=== PATIENT | female | born 1955 | race Caucasian/White ===

== ENCOUNTER → 2017-03-29 | Outpatient (CLI) | payer OTHER ==
[2017-03-29 10:49] LABS: ALBUMIN 3.7 GM/DL (3.2-5.2); ALBUMIN/GLOBULIN RATIO 1.03 (1.00-1.93); ALKALINE PHOSPHATASE 70 U/L (45-117); ALT/SGPT 45 U/L (12-78); ANION GAP 8 MEQ/L (8-16); AST/SGOT 39 U/L (15-37); BILIRUBIN,TOTAL 0.6 MG/DL (0.2-1.0); BLOOD UREA NITROGEN 14 MG/DL (7-18); CALCIUM LEVEL 8.8 MG/DL (8.8-10.2); CARBON DIOXIDE LEVEL 28 MEQ/L (21-32); CHLORIDE LEVEL 106 MEQ/L (98-107); CHOLESTEROL LEVEL 261 MG/DL (<200); CREATININE FOR GFR 0.79 MG/DL (0.55-1.02); FREE T4 1.25 NG/DL (0.76-1.46); GLOMERULAR FILTRATION RATE > 60.0 (>45); GLUCOSE, FASTING 91 MG/DL (80-110); POTASSIUM SERUM 3.9 MEQ/L (3.5-5.1); SODIUM LEVEL 142 MEQ/L (136-145); TOTAL PROTEIN 7.3 GM/DL (6.4-8.2); TRIGLYCERIDES LEVEL 123 MG/DL (<150)
== END ==
LOC: M LAB 08:12
PROVIDERS: ATTEND Nurse Practitioner Family
DX: E78.5 Hyperlipidemia, unspecified (principal); E55.9 Vitamin D deficiency, unspecified

== ENCOUNTER → 2017-04-04 | Outpatient (REF) | payer OTHER | LOC: M SFHCPLAZ 17:08 | PROVIDERS: ATTEND Nurse Practitioner Family | DX: E78.5 Hyperlipidemia, unspecified (principal) ==

== ENCOUNTER → 2017-05-29 | Outpatient (CLI) | payer OTHER ==
--- NOTE | 2017-05-29 13:01 | REPMRS ---
Patient History The patient states she had a clinical breast exam in 06/14 Patient is postmenopausal. No known family history of cancer. Benign excisional biopsy of the left breast, 1979. Digital Woman Screen Mammo: May 29, 2017 - Exam #: [id number] Bilateral CC and MLO view(s) were taken. Technologist: Lennie Gomez, Technologist Prior study comparison: June 12, 2016, digital woman screen mammo performed at [facility]. May 12, 2015, digital woman screen mammo performed at [facility]. FINDINGS: The breast tissue is almost entirely fat. There has been no change in the appearance of the mammogram from the prior studies. There is no interval development of dominant mass, areas of architectural distortion, or clustered microcalcification typical of malignancy. Scattered lymph nodes are seen in the axillae. No significant changes when compared with prior studies. ASSESSMENT: BI-RADS/ACR category 2 mammogram. Benign finding(s). Recommendation Routine screening mammogram in 1 year (for women over age 40). This mammogram was interpreted with the aid of an FDA-approved computer-aided dectection system. A. Negative x-ray reports should not delay biopsy if a dominant or clinically suspicious mass is present. B. Four to eight percent of cancers are not identified by mammography. C. Adenosis and dense breast may obscure an underlying neoplasm. Electronically Signed By: Ajay Rod MD 05/29/17 [id number]
== END ==
LOC: M WHC 10:04
PROVIDERS: ATTEND Nurse Practitioner Family
DX: Z12.31 Encounter for screening mammogram for malignant neoplasm of breast (principal); Z78.0 Asymptomatic menopausal state; R92.2 Inconclusive mammogram

== ENCOUNTER → 2017-06-28 | Outpatient (REF) | payer OTHER ==
[2017-06-28 14:15] LABS: ALBUMIN 3.6 GM/DL (3.2-5.2); ALBUMIN/GLOBULIN RATIO 1.06 (1.00-1.93); ALKALINE PHOSPHATASE 90 U/L (45-117); ALT/SGPT 31 U/L (12-78); ANION GAP 8 MEQ/L (8-16); AST/SGOT 26 U/L (15-37); BILIRUBIN,TOTAL 0.5 MG/DL (0.2-1.0); BLOOD UREA NITROGEN 15 MG/DL (7-18); CALCIUM LEVEL 9.2 MG/DL (8.8-10.2); CARBON DIOXIDE LEVEL 28 MEQ/L (21-32); CHLORIDE LEVEL 109 MEQ/L (98-107); CHOLESTEROL LEVEL 141 MG/DL (<200); CREATININE FOR GFR 0.81 MG/DL (0.55-1.02); FREE T4 1.27 NG/DL (0.76-1.46); GLOMERULAR FILTRATION RATE > 60.0 (>45); GLUCOSE, FASTING 88 MG/DL (80-110); POTASSIUM SERUM 4.2 MEQ/L (3.5-5.1); SODIUM LEVEL 145 MEQ/L (136-145); TRIGLYCERIDES LEVEL 140 MG/DL (<150)
== END ==
LOC: M SFHCPLAZ 08:25
PROVIDERS: ATTEND Nurse Practitioner Family
DX: E78.5 Hyperlipidemia, unspecified (principal); E55.9 Vitamin D deficiency, unspecified

== ENCOUNTER → 2018-01-02 | Outpatient (REF) | payer OTHER ==
[2018-01-02 13:58] LABS: ALBUMIN 3.7 GM/DL (3.2-5.2); ALBUMIN/GLOBULIN RATIO 1.06 (1.00-1.93); ALKALINE PHOSPHATASE 90 U/L (45-117); ALT/SGPT 29 U/L (12-78); ANION GAP 6 MEQ/L (8-16); AST/SGOT 27 U/L (7-37); BILIRUBIN,TOTAL 0.6 MG/DL (0.2-1.0); BLOOD UREA NITROGEN 16 MG/DL (7-18); CALCIUM LEVEL 9.1 MG/DL (8.8-10.2); CARBON DIOXIDE LEVEL 30 MEQ/L (21-32); CHLORIDE LEVEL 107 MEQ/L (98-107); CREATININE FOR GFR 0.71 MG/DL (0.55-1.30); GLOMERULAR FILTRATION RATE > 60.0 (>45); GLUCOSE, FASTING 87 MG/DL (70-100); POTASSIUM SERUM 4.4 MEQ/L (3.5-5.1); SODIUM LEVEL 143 MEQ/L (136-145); TOTAL PROTEIN 7.2 GM/DL (6.4-8.2)
== END ==
LOC: M SFHCPLAZ 08:22
DX: E78.5 Hyperlipidemia, unspecified (principal)
CPT/HCPCS: 36415

== ENCOUNTER → 2018-06-26 | Outpatient (REF) | payer MEDICARE, MEDICAID | LOC: M SFHCWAGY 11:10 | DX: Z12.4 Encounter for screening for malignant neoplasm of cervix (principal); N95.2 Postmenopausal atrophic vaginitis ==

== ENCOUNTER → 2018-06-26 | Outpatient (CLI) | payer MEDICARE, MEDICAID | LOC: M WHC 09:01 | DX: Z12.31 Encounter for screening mammogram for malignant neoplasm of breast (principal); Z12.4 Encounter for screening for malignant neoplasm of cervix; N95.2 Postmenopausal atrophic vaginitis; Z78.0 Asymptomatic menopausal state; Z98.890 Other specified postprocedural states; M81.0 Age-related osteoporosis without current pathological fracture; Z12.12 Encounter for screening for malignant neoplasm of rectum | CPT/HCPCS: G0123 ==

== ENCOUNTER → 2018-07-08 | Outpatient (REF) | payer MEDICARE, MEDICAID ==
[2018-07-08 10:54] LABS: TOTAL 25(OH) VITAMIN D 45.2 NG/ML (30.0-100.0)
[2018-07-08 14:59] LABS: ALKALINE PHOSPHATASE 90 U/L (45-117); ALT/SGPT 30 U/L (12-78); ANION GAP 8 MEQ/L (8-16); AST/SGOT 24 U/L (7-37); BILIRUBIN,TOTAL 0.4 MG/DL (0.2-1.0); BLOOD UREA NITROGEN 21 MG/DL (7-18); CALCIUM LEVEL 8.9 MG/DL (8.8-10.2); CARBON DIOXIDE LEVEL 26 MEQ/L (21-32); CHLORIDE LEVEL 109 MEQ/L (98-107); CREATININE FOR GFR 0.88 MG/DL (0.55-1.30); FREE T4 1.23 NG/DL (0.76-1.46); GLOMERULAR FILTRATION RATE > 60.0 (>45); GLUCOSE, FASTING 89 MG/DL (70-100); POTASSIUM SERUM 4.6 MEQ/L (3.5-5.1); SODIUM LEVEL 143 MEQ/L (136-145); TOTAL PROTEIN 7.4 GM/DL (6.4-8.2); TRIGLYCERIDES LEVEL 179 MG/DL (<150)
[2018-07-08 16:50] LABS: CHOLESTEROL LEVEL 143 MG/DL (<200); CHOLESTEROL RISK RATIO 2.648 (<5); HDL CHOLESTEROL 54 MG/DL (>40); LDL CHOLESTEROL 53.2 MG/DL (<100); NON-HDL-C 89 MG/DL
[2018-07-08 16:52] LABS: ALBUMIN/GLOBULIN RATIO 1.17 (1.00-1.93)
== END ==
LOC: M SFHCPLAZ 08:22
DX: E78.5 Hyperlipidemia, unspecified (principal); E55.9 Vitamin D deficiency, unspecified
CPT/HCPCS: 84443

== ENCOUNTER → 2019-01-01 | Outpatient (REF) | payer MEDICARE, MEDICAID ==
[2019-01-01 12:29] LABS: BLOOD UREA NITROGEN 20 MG/DL (7-18); CALCIUM LEVEL 9.6 MG/DL (8.8-10.2); CARBON DIOXIDE LEVEL 30 MEQ/L (21-32); CHLORIDE LEVEL 104 MEQ/L (98-107); GLOMERULAR FILTRATION RATE > 60.0 (>45); GLUCOSE, FASTING 91 MG/DL (70-100); SODIUM LEVEL 142 MEQ/L (136-145)
== END ==
LOC: M SFHCPLAZ 09:23
PROVIDERS: ATTEND Nurse Practitioner Family
DX: I10 Essential (primary) hypertension (principal)

== ENCOUNTER → 2019-07-14 | Outpatient (REF) | payer MEDICARE, MEDICAID ==
[~2019-07-14] MED LIST: ALEN70TA74 PO; ASPI81TA85 PO; ATOR40TA75 PO; CALC1TAB63 PO; D 202000 PO; EXCETAB44 PO; FLUTISP; HYDR-4571 PO; HYDR12.55 PO; LORA-622 PO; NORC1TAB7 PO; OMEP-221 PO; ONDA4TAB6 PO; PROM12.56 PO; SUMA100T2 PO
[2019-07-14 10:54] LABS: HEMATOCRIT 40.5 % (36.0-47.0); HEMOGLOBIN 12.9 g/dl (12.0-15.5); MEAN CORPUSCULAR HEMOGLOBIN 29.6 pg (27.0-33.0); MEAN CORPUSCULAR HGB CONC 31.9 g/dl (32.0-36.5); MEAN CORPUSCULAR VOLUME 92.9 fl (80.0-96.0); PLATELET COUNT, AUTOMATED 240 10^3/uL (150-450); RED BLOOD COUNT 4.36 10^6/uL (4.00-5.40); WHITE BLOOD COUNT 4.7 10^3/uL (4.0-10.0)
[2019-07-14 11:17] LABS: ALBUMIN 3.4 GM/DL (3.2-5.2); ALT/SGPT 25 U/L (12-78); BILIRUBIN,TOTAL 0.5 MG/DL (0.2-1.0); BLOOD UREA NITROGEN 17 MG/DL (7-18); CALCIUM LEVEL 8.9 MG/DL (8.8-10.2); CARBON DIOXIDE LEVEL 32 MEQ/L (21-32); CHLORIDE LEVEL 106 MEQ/L (98-107); CHOLESTEROL LEVEL 138 MG/DL (<200); CHOLESTEROL RISK RATIO 2.816 (<5); CREATININE FOR GFR 0.91 MG/DL (0.55-1.30); GLOMERULAR FILTRATION RATE > 60.0 (>45); GLUCOSE, FASTING 90 MG/DL (70-100); HDL CHOLESTEROL 49 MG/DL (>40); LDL CHOLESTEROL 68 MG/DL (<100); NON-HDL-C 89 MG/DL; POTASSIUM SERUM 3.8 MEQ/L (3.5-5.1); SODIUM LEVEL 143 MEQ/L (136-145); TOTAL PROTEIN 6.8 GM/DL (6.4-8.2); TRIGLYCERIDES LEVEL 105 MG/DL (<150)
[2019-07-14 11:22] LABS: TOTAL 25(OH) VITAMIN D 37.7 NG/ML (30.0-100.0)
[2019-07-14 11:27] LABS: MALB URINE SIEMENS < 5.0 MG/L; MAU/CREAT RATIO 4.9 MCG/MG (0.0-30.0)
== END ==
LOC: M SFHCPLAZ 08:29
PROVIDERS: ATTEND Nurse Practitioner Family
DX: K21.9 Gastro-esophageal reflux disease without esophagitis (principal); I10 Essential (primary) hypertension; E78.5 Hyperlipidemia, unspecified; E55.9 Vitamin D deficiency, unspecified

== ENCOUNTER → 2019-08-27 | Outpatient (CLI) | payer MEDICARE, MEDICAID ==
--- NOTE | 2019-08-27 10:33 | REPMRS ---
Patient History The patient states she had a clinical breast exam in 07/2019. No known family history of cancer. Benign excisional biopsy of the left breast, 1979. No Hormone Replacement Therapy 3D TOMOSYNTHESIS WAS PERFORMED. [facility] lifetime risk for breast cancer is 4.9%. Digital Woman Screen Mammo: August 27, 2019 - Exam #: [id number] Bilateral CC and MLO view(s) were taken. Technologist: Lennie Gomez, Technologist Prior study comparison: June 26, 2018, bilateral digital woman screen mammo performed at [facility]. May 29, 2017, digital woman screen mammo performed at [facility]. FINDINGS: There are scattered fibroglandular densities. There has been no change in the appearance of the mammogram from the prior studies. There is a mild amount of residual fibroglandular tissue which is fairly symmetric. There is no interval development of dominant mass, architectural distortion, or clustered microcalcification suggestive of malignancy. Assessment: BI-RADS/ACR category 1 mammogram. Negative Mammogram. Recommendation Routine screening mammogram in 1 year (for women over age 40). This mammogram was interpreted with the aid of an FDA-approved computer-aided dectection system. Electronically Signed By: Julio Rose MD 08/27/19 [id number]
== END ==
LOC: M WHC 09:41
PROVIDERS: ATTEND Nurse Practitioner Family
DX: Z12.31 Encounter for screening mammogram for malignant neoplasm of breast (principal); Z86.018 Personal history of other benign neoplasm
CPT/HCPCS: 77063; 77067; G0463

== ENCOUNTER 2019-09-23 09:15 | Emergency (ER) | payer MEDICARE, MEDICAID ==
[~2019-09-23] VITALS: Ht 152.4 cm; Wt 77.2 kg
[2019-09-23] MEDS ORDERED: ALEN70TA74 (09:23)
[2019-09-23] MEDS ORDERED: HYDR12.55 (09:23)
[2019-09-23] MEDS ORDERED: FLUTISP (09:23)
[2019-09-23] MEDS ORDERED: ATOR40TA75 (09:23)
[2019-09-23] MEDS ORDERED: OMEP-221 (09:23)
[2019-09-23] MEDS ORDERED: ONDANSETRON 4MG/2ML VIAL (J2405) IV ONE (10:15)
[2019-09-23] MEDS ORDERED: NS 1,000 ML IV ONE ×2 (10:15→13:00)
[2019-09-23 11:09] LABS: BASO % 0.4 % (0.0-1.0); EOS % 0.2 % (0.0-3.0); HEMATOCRIT 41.5 % (36.0-47.0); HEMOGLOBIN 13.7 g/dl (12.0-15.5); LYMPH # 1.3 10^3/uL (1.5-5.0); LYMPH % 13.2 % (24.0-44.0); MEAN CORPUSCULAR HEMOGLOBIN 30.6 pg (27.0-33.0); MEAN CORPUSCULAR VOLUME 92.6 fl (80.0-96.0); MONO # 0.9 10^3/uL (0.0-0.8); MONO % 8.8 % (0.0-5.0); NEUTROPHILS # 7.6 10^3/uL (1.5-8.5); NEUTROPHILS % 77.1 % (36.0-66.0); PLATELET COUNT, AUTOMATED 255 10^3/uL (150-450); RED BLOOD COUNT 4.48 10^6/uL (4.00-5.40); WHITE BLOOD COUNT 9.9 10^3/uL (4.0-10.0)
[2019-09-23 11:32] LABS: INFLUENZA A AMPLIFICATION NEGATIVE (NEGATIVE); INFLUENZA B AMPLIFICATION NEGATIVE (NEGATIVE)
[2019-09-23 12:28] LABS: ALBUMIN 3.6 GM/DL (3.2-5.2); ALT/SGPT 22 U/L (12-78); AMYLASE 212 U/L (25-115); BILIRUBIN,DIRECT 0.2 MG/DL (0.0-0.2); BILIRUBIN,TOTAL 1.1 MG/DL (0.2-1.0); BLOOD UREA NITROGEN 17 MG/DL (7-18); CALCIUM LEVEL 9.1 MG/DL (8.8-10.2); CARBON DIOXIDE LEVEL 26 MEQ/L (21-32); CHLORIDE LEVEL 106 MEQ/L (98-107); CREATININE FOR GFR 0.78 MG/DL (0.55-1.30); GLOMERULAR FILTRATION RATE > 60.0 (>45); GLUCOSE, FASTING 78 MG/DL (70-100); LIPASE 1167 U/L (73-393); SODIUM LEVEL 140 MEQ/L (136-145); TOTAL PROTEIN 7.6 GM/DL (6.4-8.2)
[2019-09-23] MEDS ORDERED: ISOVUE-370 76% 100ML VIAL (Q9967) As Ordered ONE (12:59)
--- NOTE | 2019-09-23 14:09 | REP ---
CT ABDOMEN AND PELVIS WITH IV BUT WITHOUT ORAL CONTRAST: HISTORY: Pancreatitis. No comparison CT or sonography. CT CONTRAST DOSE: 100 mL of intravenous Isovue 370. CT FINDINGS: Digital preliminary seating upholsterer radiograph demonstrates mild gaseous distension of the transverse colon question ileus. The lung bases are clear. There is no evidence of pleural effusion or upper abdominal ascites. There is mild diffuse fatty infiltration of the liver. There are scattered granulomatous calcifications and small cysts in the spleen. There are granulomatous calcifications in the lung bases as well. There are multiple gallstones in the dependent portion of the gallbladder measuring up to 1.5 cm in greatest diameter. There is minimal gallbladder wall thickening enhancement but no pericholecystic fluid is seen. The gallbladder is mildly distended measuring 9.2 cm in greatest diameter. No adrenal lesion is seen. There is thickening of the pancreatic tail with a pancreatic and peripancreatic edema adjacent to the tail of the pancreas consistent with pancreatitis. The thickened pancreatic tail shows some increase in overall attenuation as well but no mass lesion is seen. The body and head of the pancreas are unremarkable. No organized fluid collection is seen. There is a tiny accessory splenule. There is mild hydronephrosis affecting the left kidney and a parapelvic cyst is seen in the upper pole of the left kidney. No ureteral calculus or mass lesion is observed. The kidneys enhance symmetrically. Normal caliber aorta is seen. A normal appendix is observed. There is sigmoid colon diverticulosis and some descending colon diverticulosis without CT evidence of diverticulitis. No uterine or ovarian abnormality is seen. Urinary bladder is unremarkable. No abdominal wall defect is seen. IMPRESSION: Regional swelling and increased attenuation in the pancreatic tail with peripancreatic fat streaking adjacent to the pancreatic tail consistent with focal pancreatitis. No definite mass lesion. Consider follow-up scan. No fluid collection, hemorrhage, or necrosis is evident. Cholelithiasis and mild distension of the gallbladder is visible. There is some fatty infiltration of the liver. Mild left-sided hydronephrosis and hydroureter without evidence of stone or mass. Left colonic diverticulosis. Electronically Signed by Nahum Kraus MD 09/23/2019 02:22 P
--- NOTE | 2019-09-23 14:42 | REP ---
RIGHT UPPER QUADRANT ULTRASOUND: Real-time sonographic evaluation of right upper quadrant performed. Gallbladder demonstrates sludge and stones. Gallbladder wall is not significantly thickened. There is no intrahepatic or extrahepatic biliary dilatation, common bile duct measuring 4 mm. Liver demonstrates diffuse heterogeneous increased echotexture, compatible with diffuse fibrofatty infiltration. Pancreas is not seen due to overlying bowel gas. Right kidney demonstrates no hydronephrosis with normal size 10.6 cm in length. The study is limited due to body habitus and bowel gas. IMPRESSION: Sludge and stones in the gallbladder. No biliary dilatation or free fluid. No gallbladder wall thickening. Diffuse fibrofatty infiltration of the liver. Electronically Signed by Julio Rose MD 09/23/2019 03:00 P
[2019-09-23] MEDS ORDERED: KETOROLAC 30 MG/ML VIAL (J1885) IV ONE (14:45)
[2019-09-23] MEDS ORDERED: METOCLOPRAMIDE INJ 10MG/2ML VIAL (J2765) IV ONE (14:45)
[2019-09-23] MEDS ORDERED: NORC1TAB7 PO (15:49)
[2019-09-23] MEDS ORDERED: ONDA4TAB6 PO (15:49)
[2019-09-23 16:06] VITALS: BP 121/65
--- NOTE | 2019-09-29 13:03 | ED PDOC ---
Post-Departure Follow-Up sandra jovel and lianet faxed formal report of ct abd/p for fu Nathaniel Alvarenga MD Sep 29, 2019 13:02
== END 2019-09-23 16:08 | disposition home or self-care (01) ==
LOC: M ED 09:15
DX: K80.51 Calculus of bile duct without cholangitis or cholecystitis with obstruction (principal); K85.92 Acute pancreatitis with infected necrosis, unspecified; I10 Essential (primary) hypertension; E78.5 Hyperlipidemia, unspecified; K21.9 Gastro-esophageal reflux disease without esophagitis; K76.0 Fatty (change of) liver, not elsewhere classified; K57.30 Diverticulosis of large intestine without perforation or abscess without bleeding; Z79.899 Other long term (current) drug therapy
CPT/HCPCS: 74177; 76705; 80048; 80076; 82150; 83690; 85025; 87502; 96361; 96374; 96375; 99284; J1885; J2405; J2765; Q9967

== ENCOUNTER 2019-09-24 08:51 | Emergency (ER) | payer MEDICARE, MEDICAID ==
[~2019-09-24] VITALS: Ht 152.4 cm; Wt 77.6 kg
[~2019-09-24 08:51] MED LIST changes: +ALEN70TA74; -ALEN70TA74 PO; -ASPI81TA85 PO; +ATOR40TA75; -ATOR40TA75 PO; -CALC1TAB63 PO; -D 202000 PO; -EXCETAB44 PO; -HYDR-4571 PO; +HYDR12.55; -HYDR12.55 PO; -LORA-622 PO; +OMEP-221; -OMEP-221 PO; -PROM12.56 PO; -SUMA100T2 PO
[2019-09-24] MEDS ORDERED: METOCLOPRAMIDE INJ 10MG/2ML VIAL (J2765) IV ONE (09:15)
[2019-09-24] MEDS ORDERED: NS 1,000 ML IV ONE (09:15)
[2019-09-24 09:53] LABS: BASO % 0.3 % (0.0-1.0); EOS % 0.5 % (0.0-3.0); HEMATOCRIT 38.8 % (36.0-47.0); HEMOGLOBIN 12.1 g/dl (12.0-15.5); LYMPH # 1.1 10^3/uL (1.5-5.0); LYMPH % 12.8 % (24.0-44.0); MEAN CORPUSCULAR HEMOGLOBIN 30.1 pg (27.0-33.0); MEAN CORPUSCULAR HGB CONC 31.2 g/dl (32.0-36.5); MEAN CORPUSCULAR VOLUME 96.5 fl (80.0-96.0); MONO # 0.8 10^3/uL (0.0-0.8); MONO % 9.1 % (0.0-5.0); NEUTROPHILS # 6.7 10^3/uL (1.5-8.5); NEUTROPHILS % 76.7 % (36.0-66.0); PLATELET COUNT, AUTOMATED 187 10^3/uL (150-450); RED BLOOD COUNT 4.02 10^6/uL (4.00-5.40); WHITE BLOOD COUNT 8.8 10^3/uL (4.0-10.0)
[2019-09-24 10:19] LABS: ALBUMIN 3.1 GM/DL (3.2-5.2); ALT/SGPT 18 U/L (12-78); AMYLASE 103 U/L (25-115); BILIRUBIN,DIRECT 0.3 MG/DL (0.0-0.2); BILIRUBIN,TOTAL 0.9 MG/DL (0.2-1.0); BLOOD UREA NITROGEN 15 MG/DL (7-18); CALCIUM LEVEL 8.4 MG/DL (8.8-10.2); CARBON DIOXIDE LEVEL 28 MEQ/L (21-32); CHLORIDE LEVEL 108 MEQ/L (98-107); CREATININE FOR GFR 0.77 MG/DL (0.55-1.30); GLOMERULAR FILTRATION RATE > 60.0 (>45); GLUCOSE, FASTING 100 MG/DL (70-100); LIPASE 403 U/L (73-393); POTASSIUM SERUM 3.6 MEQ/L (3.5-5.1); SODIUM LEVEL 141 MEQ/L (136-145); TOTAL PROTEIN 6.6 GM/DL (6.4-8.2)
[2019-09-24] MEDS ORDERED: KETOROLAC 30 MG/ML VIAL (J1885) IV ONE (10:45)
[2019-09-24] MEDS ORDERED: ONDANSETRON 4MG/2ML VIAL (J2405) IV ONE (10:45)
[2019-09-24 11:59] VITALS: BP 121/60
== END 2019-09-24 12:04 | disposition home or self-care (01) ==
LOC: M ED 08:51
DX: G43.909 Migraine, unspecified, not intractable, without status migrainosus (principal); K85.90 Acute pancreatitis without necrosis or infection, unspecified; I10 Essential (primary) hypertension; E78.5 Hyperlipidemia, unspecified; Z79.899 Other long term (current) drug therapy
CPT/HCPCS: 80048; 80076; 82150; 83690; 85025; 96361; 96374; 96375; 99283; J1885; J2405; J2765

== ENCOUNTER → 2019-10-17 | Outpatient (CLI) | payer MEDICARE, MEDICAID ==
[~2019-10-17] MED LIST changes: -ALEN70TA74; +ALEN70TA74 PO; +ASPI81TA85 PO; -ATOR40TA75; +ATOR40TA75 PO; +CALC1TAB63 PO; +D 202000 PO; +EXCETAB44 PO; +HYDR-4571 PO; -HYDR12.55; +HYDR12.55 PO; +LORA-622 PO; -OMEP-221; +OMEP-221 PO; +PROM12.56 PO; +SUMA100T2 PO
--- NOTE | 2019-10-17 17:58 | ECGEPIP ---
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 Clincal correlation advised Electronically Signed on 10-17-2019 17:58:41 EST by Bubba Gaston
== END ==
LOC: M EKG 13:45
PROVIDERS: ATTEND Anesthesiology
DX: Z01.810 Encounter for preprocedural cardiovascular examination (principal); R00.1 Bradycardia, unspecified

== ENCOUNTER 2019-10-21 10:17 | Emergency (ER) | payer MEDICARE, MEDICAID ==
[~2019-10-21] VITALS: Ht 152.4 cm; Wt 73.6 kg
[~2019-10-21 10:17] MED LIST changes: -HYDR-4571 PO; -PROM12.56 PO
[2019-10-21] MEDS ORDERED: NS 1,000 ML IV ONE (10:45)
[2019-10-21] MEDS ORDERED: ONDANSETRON 4MG/2ML VIAL (J2405) IV ONE (10:45)
[2019-10-21 11:09] LABS: BASO % 0.6 % (0.0-1.0); EOS % 0.2 % (0.0-3.0); HEMATOCRIT 41.7 % (36.0-47.0); HEMOGLOBIN 13.2 g/dl (12.0-15.5); LYMPH # 0.9 10^3/uL (1.5-5.0); LYMPH % 18.8 % (24.0-44.0); MEAN CORPUSCULAR HEMOGLOBIN 30.1 pg (27.0-33.0); MEAN CORPUSCULAR HGB CONC 31.7 g/dl (32.0-36.5); MONO # 0.2 10^3/uL (0.0-0.8); MONO % 4.3 % (0.0-5.0); NEUTROPHILS # 3.7 10^3/uL (1.5-8.5); NEUTROPHILS % 75.5 % (36.0-66.0); PLATELET COUNT, AUTOMATED 209 10^3/uL (150-450); RED BLOOD COUNT 4.39 10^6/uL (4.00-5.40); WHITE BLOOD COUNT 4.9 10^3/uL (4.0-10.0)
[2019-10-21 11:29] LABS: ALBUMIN 3.5 GM/DL (3.2-5.2); ALT/SGPT 23 U/L (12-78); BILIRUBIN,DIRECT 0.1 MG/DL (0.0-0.2); BILIRUBIN,TOTAL 0.5 MG/DL (0.2-1.0); BLOOD UREA NITROGEN 11 MG/DL (7-18); CALCIUM LEVEL 9.3 MG/DL (8.8-10.2); CARBON DIOXIDE LEVEL 26 MEQ/L (21-32); CHLORIDE LEVEL 111 MEQ/L (98-107); CK-MB VALUE MASS < 1.0 NG/ML (<3.6); CPK CREATINE PHOSPHOKINASE 104 U/L (26-192); CREATININE FOR GFR 0.73 MG/DL (0.55-1.30); GLOMERULAR FILTRATION RATE > 60.0 (>45); GLUCOSE, FASTING 101 MG/DL (70-100); LIPASE 80 U/L (73-393); MB/CK RELATIVE INDEX 0.96 (< OR =4); SODIUM LEVEL 144 MEQ/L (136-145); TOTAL PROTEIN 7.1 GM/DL (6.4-8.2); TROPONIN I < 0.02 NG/ML (< 0.10)
--- NOTE | 2019-10-21 11:59 | REP ---
Clinical: Right upper quadrant pain and vomiting. Technique: Real time gonzalez scale ultrasound examination using curved array transducer. Findings: Liver is increased echogenicity suggesting fatty infiltration without focal hepatic lesion identified. The pancreas is incompletely evaluated due to interposed bowel gas. The gallbladder demonstrates multiple mobile gallstones without wall thickening or pericholecystic fluid. No biliary ductal dilatation is appreciated and the common bile duct measures 4.2 mm diameter. Right kidney is normal in reniform shape without hydronephrosis and measures 10.4 x 3.9 x 4.5 cm. No ascites in the visualized right upper quadrant. Impression: 1. Cholelithiasis without sonographic evidence for acute cholecystitis. 2. Hepatic steatosis. Electronically Signed by Man Urbina MD 10/21/2019 11:50 A
[2019-10-21] MEDS ORDERED: PROM12.56 PO (13:13)
[2019-10-21 13:24] VITALS: BP 130/74
--- NOTE | 2019-10-21 20:27 | ECGEPIP ---
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 Order Number: [id number] Reading MD: Talon Teague Measurements Intervals [place] Rate: 51 P: 17 [place]: 122 QRS: -20 QRSD: 73 T: -5 QT: 404 QTc: 374 Interpretive Statements SINUS BRADYCARDIA NSTTW ABNORMALITIES SIMILAR TO 10/17/19 Electronically Signed on 10-21-2019 20:27:42 EST by Talon Teague
== END 2019-10-21 13:37 | disposition home or self-care (01) ==
LOC: M ED 10:17
DX: K80.20 Calculus of gallbladder without cholecystitis without obstruction (principal); R11.2 Nausea with vomiting, unspecified; R00.1 Bradycardia, unspecified; R51 Headache; E78.5 Hyperlipidemia, unspecified; I10 Essential (primary) hypertension; K21.9 Gastro-esophageal reflux disease without esophagitis; K76.0 Fatty (change of) liver, not elsewhere classified; Z79.82 Long term (current) use of aspirin; Z79.899 Other long term (current) drug therapy
CPT/HCPCS: 36415; 76705; 80048; 80076; 81001; 82550; 82553; 83690; 84484; 85025; 87086; 93005; 96361; 96374; 99284; J2405

== ENCOUNTER 2019-10-23 07:07 | Day surgery (SDC) | payer MEDICARE, MEDICAID ==
[~2019-10-23] VITALS: Ht 167.6 cm; Wt 73.8 kg
[~2019-10-23 07:07] MED LIST changes: +LR 1,000 ML IV ONE; +PROM12.56 PO; +ceFAZolin SOD 1 GM in D5W MINI-BAG PLUS 50 ML IV ONE
[2019-10-23] MEDS ORDERED: fentaNYL 250 MCG/5 ML INJECTION (J3010) As Ordered ONE (08:44)
[2019-10-23] MEDS ORDERED: LIDOCAINE 2% INJ 100 MG/5 ML SDV (FOR ANES.) As Ordered ONE (08:44)
[2019-10-23] MEDS ORDERED: ROCURONIUM BROMIDE 50 MG/5 ML VIAL As Ordered ONE (08:44)
[2019-10-23] MEDS ORDERED: PROPOFOL 200 MG/20 ML VIAL As Ordered ONE (08:44)
[2019-10-23] MEDS ORDERED: MIDAZOLAM INJ 2 MG/2 ML VIAL (J2250) As Ordered ONE (08:45)
[2019-10-23] MEDS ORDERED: CONRAY-60 60% 50ML VIAL (Q9961) As Ordered ONE (09:37)
[2019-10-23] MEDS ORDERED: BUPIVACAINE/EPIN 0.25% 30 ML VIAL As Ordered ONE (09:37)
[2019-10-23] MEDS ORDERED: GLUCAGON FOR INJ 1 MG VIAL (J1610) As Ordered ONE (09:38)
[2019-10-23] MEDS ORDERED: ONDANSETRON 4MG/2ML VIAL (J2405) As Ordered ONE (11:14)
[2019-10-23] MEDS ORDERED: SUGAMMADEX SODIUM 500 MG/5 ML VIAL (BRIDION) As Ordered ONE (11:14)
[2019-10-23] MEDS ORDERED: ACETAMINOPHEN 1000MG 100ML IV BTL (OFIRMEV) (J0131 PER 10MG) As Ordered ONE (11:15)
[2019-10-23] MEDS ORDERED: KETOROLAC 60 MG/2 ML VIAL (J1885) As Ordered ONE (11:15)
[2019-10-23] MEDS ORDERED: dexameTHASONE 4 MG/ML 1ML VIAL (J1100) As Ordered ONE (11:15)
[2019-10-23] MEDS ORDERED: NORCO, ANEXSIA 5/325MG TABLET (HYDROcodone/ACETAMINOPHEN) PO PRN (12:00)
[2019-10-23] MEDS ORDERED: LR 1,000 ML IV SCH ×2 (12:00)
[2019-10-23] MEDS ORDERED: oxyCODONE 5MG TAB PO PRN (12:00)
[2019-10-23] MEDS ORDERED: ONDANSETRON 4MG/2ML VIAL (J2405) IV PRN (12:00)
[2019-10-23] MEDS ORDERED: fentaNYL 100 MCG/2 ML INJECTION (J3010) IV PRN (12:00)
[2019-10-23 13:45] VITALS: BP 153/73
[2019-10-23] MEDS ORDERED: HYDR-4571 PO (16:17)
[2019-10-23] MEDS ORDERED: KETOROLAC 30 MG/ML VIAL (J1885) IV SCH (17:00)
--- NOTE | 2019-10-24 12:55 | RO ---
DATE OF PROCEDURE: 10/23/2019 PREOPERATIVE DIAGNOSIS: History of gallstone pancreatitis. POSTOPERATIVE DIAGNOSIS: History of gallstones pancreatitis. PROCEDURE: Laparoscopic cholecystectomy. SURGEON: Samson Herrera MD ANESTHESIA: General endotracheal anesthesia. ESTIMATED BLOOD LOSS: Minimal. FLUIDS: Crystalloid. PROCEDURE SUMMARY: The patient was brought to the operating room and was given general anesthesia. After adequate anesthesia and preoperative antibiotics were given, the patient was prepped and draped in sterile fashion. Next, a supraumbilical incision was made with skin knife. Blunt dissection was carried down to fascia. Veress needle placed into the abdominal cavity and insufflated to 15 mm of pressure and a 10 mm trocar was placed at this time. Under direct visualization, an epigastric and two lateral trocars were placed. The gallbladder was grasped, retracted superiorly, but it was tensely distended and thus I used an aspiration needle to decompress the gallbladder and then it was easier to grab. The peritoneum was taken down quite nicely across the neck of the gallbladder to where the cystic artery was well visualize. This was surrounded and followed up onto the gallbladder wall. It was clipped proximally, distally and transected. Then a window behind the neck of gallbladder was created and further dissection of the cystic duct / neck of the gallbladder was completed. Once this was nicely visualized circumferentially, clips were placed proximally and distally on this and transected. The gallbladder then was taken from the gallbladder bed using electrocautery, placed in an EndoCatch bag and brought out through the umbilicus. The right upper quadrant was copiously irrigated until clear and all trocars removed under direct visualization. 0 Vicryl was used close the fascia at the umbilicus and all incisions were closed with 4-0 Vicryl. Steri-Strips and dry sterile dressing was applied. The patient was awakened, extubated, brought to the recovery room awake, alert, hemodynamically stable. Sponge and needle counts correct times two.
== END 2019-10-23 13:45 | disposition home or self-care (01) ==
LOC: M SDC 07:07
PROVIDERS: ATTEND Surgery
DX: K80.10 Calculus of gallbladder with chronic cholecystitis without obstruction (principal); I10 Essential (primary) hypertension; E78.5 Hyperlipidemia, unspecified; K21.9 Gastro-esophageal reflux disease without esophagitis; M47.812 Spondylosis without myelopathy or radiculopathy, cervical region; M50.30 Other cervical disc degeneration, unspecified cervical region; G43.909 Migraine, unspecified, not intractable, without status migrainosus; Z79.899 Other long term (current) drug therapy; Z79.82 Long term (current) use of aspirin
CPT/HCPCS: 47562; 88304; J0131; J0690; J1100; J1885; J2250; J2405; J3010

== ENCOUNTER 2019-11-24 07:53 | Emergency (ER) | payer MEDICARE, MEDICAID ==
[~2019-11-24] VITALS: Ht 152.4 cm; Wt 70.3 kg
[~2019-11-24 07:53] MED LIST changes: +HYDR-4571 PO; -LR 1,000 ML IV ONE; -ceFAZolin SOD 1 GM in D5W MINI-BAG PLUS 50 ML IV ONE
[2019-11-24] MEDS ORDERED: KETOROLAC 30 MG/ML VIAL (J1885) IV ONE (08:30)
[2019-11-24] MEDS ORDERED: ONDANSETRON 4MG/2ML VIAL (J2405) IV ONE (08:30)
[2019-11-24] MEDS ORDERED: NS 1,000 ML IV ONE (08:30)
--- NOTE | 2019-11-24 08:52 | REP ---
CT of the brain without IV contrast: There is no hemorrhage. There is no edema, mass effect or midline shift. The cortical stripe is unremarkable. Ventricles are normal size. The visualized paranasal sinuses and mastoid air cells are clear. Impression: Negative CT study of the brain. Electronically Signed by Julio Yang MD 11/24/2019 08:43 A
[2019-11-24] MEDS ORDERED: ALKATAB21 PO (09:10)
[2019-11-24 09:11] LABS: BASO % 0.4 % (0.0-1.0); EOS % 0.1 % (0.0-3.0); HEMATOCRIT 38.4 % (36.0-47.0); HEMOGLOBIN 12.6 g/dl (12.0-15.5); LYMPH # 0.9 10^3/uL (1.5-5.0); LYMPH % 10.9 % (24.0-44.0); MEAN CORPUSCULAR HEMOGLOBIN 30.7 pg (27.0-33.0); MEAN CORPUSCULAR HGB CONC 32.8 g/dl (32.0-36.5); MEAN CORPUSCULAR VOLUME 93.7 fl (80.0-96.0); MONO # 0.7 10^3/uL (0.0-0.8); MONO % 8.2 % (0.0-5.0); NEUTROPHILS # 6.7 10^3/uL (1.5-8.5); PLATELET COUNT, AUTOMATED 171 10^3/uL (150-450); WHITE BLOOD COUNT 8.4 10^3/uL (4.0-10.0)
[2019-11-24 09:29] LABS: ALBUMIN 3.2 GM/DL (3.2-5.2); ALT/SGPT 20 U/L (12-78); BILIRUBIN,DIRECT 0.3 MG/DL (0.0-0.2); BILIRUBIN,TOTAL 0.7 MG/DL (0.2-1.0); BLOOD UREA NITROGEN 14 MG/DL (7-18); CALCIUM LEVEL 8.9 MG/DL (8.8-10.2); CARBON DIOXIDE LEVEL 27 MEQ/L (21-32); CHLORIDE LEVEL 109 MEQ/L (98-107); CK-MB VALUE MASS < 1.0 NG/ML (<3.6); CPK CREATINE PHOSPHOKINASE 56 U/L (26-192); CREATININE FOR GFR 0.85 MG/DL (0.55-1.30); GLOMERULAR FILTRATION RATE > 60.0 (>45); GLUCOSE, FASTING 114 MG/DL (70-100); LIPASE 49 U/L (73-393); MB/CK RELATIVE INDEX 1.79 (< OR =4); POTASSIUM SERUM 3.4 MEQ/L (3.5-5.1); SODIUM LEVEL 143 MEQ/L (136-145); TOTAL PROTEIN 6.7 GM/DL (6.4-8.2); TROPONIN I < 0.02 NG/ML (< 0.10)
[2019-11-24] MEDS ORDERED: SUMAtriptan SUCCINATE 25 MG TAB PO ONE (10:00)
[2019-11-24] MEDS ORDERED: ONDA4TAB6 PO (10:54)
[2019-11-24 11:47] VITALS: BP 136/63
--- NOTE | 2019-11-24 18:43 | ECGEPIP ---
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
== END 2019-11-24 11:49 | disposition home or self-care (01) ==
LOC: M ED 07:53
DX: G43.909 Migraine, unspecified, not intractable, without status migrainosus (principal); I10 Essential (primary) hypertension; J34.9 Unspecified disorder of nose and nasal sinuses; Z79.82 Long term (current) use of aspirin; Z79.899 Other long term (current) drug therapy
CPT/HCPCS: 36415; 70450; 80048; 80076; 82550; 82553; 83690; 84484; 85025; 93005; 96361; 96374; 96375; 99284; J1885; J2405

== ENCOUNTER → 2020-01-21 | Outpatient (CLI) | payer MEDICARE, MEDICAID ==
[~2020-01-21] MED LIST changes: +ALKATAB21 PO
[2020-01-21 08:52] LABS: ALBUMIN 3.6 GM/DL (3.2-5.2); ALT/SGPT 21 U/L (12-78); AMYLASE 80 U/L (25-115); BILIRUBIN,TOTAL 0.4 MG/DL (0.2-1.0); BLOOD UREA NITROGEN 21 MG/DL (7-18); CARBON DIOXIDE LEVEL 30 MEQ/L (21-32); CHLORIDE LEVEL 108 MEQ/L (98-107); CHOLESTEROL LEVEL 140 MG/DL (<200); CHOLESTEROL RISK RATIO 3.043 (<5); GLOMERULAR FILTRATION RATE > 60.0 (>45); GLUCOSE, FASTING 98 MG/DL (70-100); HDL CHOLESTEROL 46 MG/DL (>40); LDL CHOLESTEROL 64 MG/DL (<100); LIPASE 132 U/L (73-393); NON-HDL-C 94 MG/DL; POTASSIUM SERUM 3.9 MEQ/L (3.5-5.1); SODIUM LEVEL 142 MEQ/L (136-145); TOTAL PROTEIN 7.2 GM/DL (6.4-8.2); TRIGLYCERIDES LEVEL 149 MG/DL (<150)
[2020-01-21 09:00] LABS: TOTAL 25(OH) VITAMIN D 40.4 NG/ML (30.0-100.0)
== END ==
LOC: M LAB 07:56
PROVIDERS: ATTEND Family Medicine
DX: Z90.49 Acquired absence of other specified parts of digestive tract (principal); I10 Essential (primary) hypertension; E55.9 Vitamin D deficiency, unspecified; M81.0 Age-related osteoporosis without current pathological fracture; E78.5 Hyperlipidemia, unspecified

== ENCOUNTER → 2020-07-01 | Outpatient (CLI) | payer MEDICARE, MEDICAID ==
[~2020-07-01] MED LIST changes: -ASPI81TA85 PO; +ASPI81TA86 PO; +VITAD400CA PO
== END ==
LOC: M LABSMTC 12:26
PROVIDERS: ATTEND Anesthesiology
DX: Z01.812 Encounter for preprocedural laboratory examination (principal); Z20.828 Contact with and (suspected) exposure to other viral communicable diseases
CPT/HCPCS: C9803; U0003

== ENCOUNTER 2020-07-06 11:29 | Day surgery (SDC) | payer MEDICARE, MEDICAID ==
[~2020-07-06] VITALS: Ht 152.4 cm; Wt 70.3 kg
[2020-07-06] MEDS: NS 1,000 ML IV ONE (11:50)
[2020-07-06] MEDS ORDERED: LIDOCAINE 2% 100MG/5ML SDV (FOR ANES.) As Ordered ONE (12:59)
[2020-07-06] MEDS ORDERED: propofoL 200 MG/20 ML VIAL As Ordered ONE (12:59)
[2020-07-06 13:50] VITALS: BP 121/83
--- NOTE | 2020-07-07 11:39 | ROOR ---
Patient Name: Mariajose Badillo Procedure Date: 07/06/2020 10:43 AM Date of : 1955 Age: 65 Room: [facility] Gender: Female Note Status: Finalized Procedure: Upper GI endoscopy Indications: Heartburn Providers: Onel KAM MD Referring MD: JOSE AYOUB MD Requesting Provider: Medicines: Monitored Anesthesia Care Complications: No immediate complications. Procedure: Pre-Anesthesia Assessment: - The heart rate, respiratory rate, oxygen saturations, blood pressure, adequacy of pulmonary ventilation, and response to care were monitored throughout the procedure. The Endoscope was introduced through the mouth, and advanced to the second part of duodenum. The upper GI endoscopy was accomplished without difficulty. The patient tolerated the procedure well. Findings: Small Hiatal Hernia. A 8 mm healed ulcer was found in the prepyloric region of the stomach. The scar tissue was healthy in appearance. Biopsies were taken with a cold forceps for histology. The exam was otherwise without abnormality. Impression: - Small Hiatal Hernia. - Scar in the prepyloric region of the stomach. Biopsied. - The examination was otherwise normal. Recommendation: - Use Prilosec (omeprazole) 40 mg PO daily. - Observe patient's clinical course. - Follow an antireflux regimen. Onel Kam MD Onel KAM MD 07/06/2020 1:02:33 PM Electronically signed by Onel KAM MD Number of Addenda: 0 Note Initiated On: 07/06/2020 10:43 AM Estimated Blood Loss: Estimated blood loss: none.
--- NOTE | 2020-07-07 11:39 | ROOR ---
Patient Name: Mariajose Badillo Procedure Date: 07/06/2020 10:44 AM Date of : 1955 Age: 65 Room: [facility] Gender: Female Note Status: Finalized Procedure: Colonoscopy Indications: Screening for colorectal malignant neoplasm Providers: Onel KAM MD Referring MD: JOSE AYOUB MD Requesting Provider: Medicines: Monitored Anesthesia Care Complications: No immediate complications. Procedure: Pre-Anesthesia Assessment: - The heart rate, respiratory rate, oxygen saturations, blood pressure, adequacy of pulmonary ventilation, and response to care were monitored throughout the procedure. The Colonoscope was introduced through the anus and advanced to the cecum, identified by appendiceal orifice and ileocecal valve. The colonoscopy was performed without difficulty. The patient tolerated the procedure well. The quality of the bowel preparation was good. Findings: The perianal and digital rectal examinations were normal. Mild sigmoid diverticulosis and small internal hemorrhoids. The entire examined colon appeared otherwise normal on direct and retroflexion views. Impression: - Mild sigmoid diverticulosis and small internal hemorrhoids. - The colon is otherwise normal on direct and retroflexion views. - No specimens collected. Recommendation: - Repeat colonoscopy in 10 years for screening purposes. Onel Kam MD Onel KAM MD 07/06/2020 1:20:16 PM Electronically signed by Onel KAM MD Number of Addenda: 0 Note Initiated On: 07/06/2020 10:44 AM Estimated Blood Loss: Estimated blood loss: none.
== END 2020-07-06 14:01 | disposition home or self-care (01) ==
LOC: M OPP 11:29
PROVIDERS: ATTEND Internal Medicine Gastroenterology
DX: Z12.11 Encounter for screening for malignant neoplasm of colon (principal); K57.30 Diverticulosis of large intestine without perforation or abscess without bleeding; K64.8 Other hemorrhoids; K31.89 Other diseases of stomach and duodenum; K44.9 Diaphragmatic hernia without obstruction or gangrene; K21.9 Gastro-esophageal reflux disease without esophagitis; I10 Essential (primary) hypertension; Z79.82 Long term (current) use of aspirin; Z79.899 Other long term (current) drug therapy
CPT/HCPCS: 43239; 88305; G0121

== ENCOUNTER → 2020-08-30 | Outpatient (CLI) | payer MEDICARE, MEDICAID ==
--- NOTE | 2020-08-30 13:06 | DEXA ---
INDICATION: OSTEOPOROSIS. COMPARISON: 06/26/2018 as well as other prior exams. TECHNIQUE: Bone density was measured using dual-energy x-ray absorptiometry (DEXA). FINDINGS: AP SPINE L1-L4 BMD 0.897 g/cm2 Young Adult T-Score -2.4 Age Matched Z-Score -0.8. LT FEMUR, TOTAL BMD 0.941 g/cm2 Young Adult T-Score -0.5 Age Matched Z-Score 0.8. LT NECK BMD 0.801 g/cm2 Young Adult T-Score -1.7 Age Matched Z-Score -0.1. RT FEMUR, TOTAL BMD 0.945 g/cm2 Young Adult T-Score -0.5 Age Matched Z-Score 0.8. RT NECK BMD 0.847 g/cm2 Young Adult T-Score -1.4 Age Matched Z-Score 0.2. IMPRESSION: There is low bone density of the spine. There is low bone density of the left hip. There is low bone density of the right hip. The density of the spine has increased 3.6% since the initial exam on 03/23/2004. The density of the spine increased 5.9% since most recent exam on 06/26/2018. The density of the left hip has increased 2.2% since initial exam on 03/23/2004. The density of the left hip has decreased 2.3% since most recent exam on 06/26/2018. The density of the right hip has increased 1.3% since the initial exam on 03/23/2004. The density of the right hip has increased 0.4% since the most recent exam on 06/26/2018. FOLLOW-UP: Recommendation for the next bone density exam: 2 years. <Electronically signed by Julio Rose > 08/30/20 [id number]
== END ==
LOC: M WHC 09:54
PROVIDERS: ATTEND Family Medicine
DX: Z01.419 Encounter for gynecological examination (general) (routine) without abnormal findings (principal); M81.0 Age-related osteoporosis without current pathological fracture; Z12.31 Encounter for screening mammogram for malignant neoplasm of breast; Z86.018 Personal history of other benign neoplasm
CPT/HCPCS: 77063; 77067; 77080; G0101

== ENCOUNTER → 2020-08-30 | Outpatient (CLI) | payer MEDICARE, MEDICAID ==
--- NOTE | 2020-08-30 11:50 | REPMRS ---
Patient History The patient states she had a clinical breast exam in 2019. No known family history of cancer. Benign excisional biopsy of the left breast, 1979. No Hormone Replacement Therapy 3D TOMOSYNTHESIS WAS PERFORMED. [facility] lifetime risk for breast cancer is 4.6%. Volpara breast density a. Digital Woman Screen Mammo: August 30, 2020 - Exam #: [id number] Bilateral CC and MLO view(s) were taken. Technologist: Selin You, Technologist Prior study comparison: August 27, 2019, bilateral digital woman screen mammo performed at [facility]. June 26, 2018, bilateral digital woman screen mammo performed at [facility]. FINDINGS: There are scattered fibroglandular densities. There has been no change in the appearance of the mammogram from the prior studies. There is a mild amount of residual fibroglandular tissue which is fairly symmetric. There is no interval development of dominant mass, architectural distortion, or clustered microcalcification suggestive of malignancy. Assessment: BI-RADS/ACR category 1 mammogram. Negative Mammogram. Recommendation Routine screening mammogram in 1 year (for women over age 40). This mammogram was interpreted with the aid of an FDA-approved computer-aided dectection system. Electronically Signed By: Julio Rose MD 08/30/20 [id number]
== END ==
LOC: M WHC 09:25
PROVIDERS: ATTEND Nurse Practitioner Family
DX: Z12.31 Encounter for screening mammogram for malignant neoplasm of breast (principal); Z86.018 Personal history of other benign neoplasm

== ENCOUNTER → 2021-04-12 | Outpatient (CLI) | payer MEDICARE, MEDICAID ==
[~2021-04-12] MED LIST changes: -ALEN70TA74 PO; +ALEN70TA82 PO
--- NOTE | 2021-04-12 15:09 | REP ---
INDICATION: N63.0 DIAG LEFT MAMMO/LEFT BREAST LUMP; N63.0 LEFT BREAST LUMP. COMPARISON: 08/27/2019 as well as other prior exams. TECHNIQUE: MLO and cc views of left breast performed with spot compression views and tomosynthesis. Focused left breast ultrasound performed at the site of the posttraumatic lump anteriorly in the left breast. FINDINGS: There is mild fibroglandular tissue essentially unchanged. There is no new mass or clustered microcalcifications. Focused left breast ultrasound at the site of the palpable lump in the left breast demonstrates ill-defined hyperechoic area, with a tiny amount of internal fluid, which measures approximately 1.2 x 0.5 x 1.3 cm, elastography interrogation demonstrates average KPa 82.9. There are 2 adjacent cystic structures which measure 4 mm and 6 mm, with average KP a 21-22. Volpara breast density a. [facility] lifetime risk of breast cancer 4.6%. IMPRESSION: BIRADS/ACR category 3, probably benign. No mammographic abnormality identified. Sonographically, at the site of the posttraumatic palpable lump in the left breast, there is a hyperechoic nodule with a maximum diameter of 1.3 cm. The sonographic findings are most consistent with a small resolving hematoma. This mammogram was interpreted with the aid of an FDA-approved computer-aided detection system. The patient letter being requested is M3. RECOMMENDATION: Recommend follow-up ultrasound left breast in 6 months to ensure resolution of the hyperechoic nodular structure, presumed to represent a resolving hematoma. A follow-up bilateral mammogram is recommended at the regularly scheduled annual interval August 2021. <Electronically signed by Julio Rose > 04/12/21 1425
== END ==
LOC: M WHC 13:16
PROVIDERS: ATTEND Advanced Practice Midwife
DX: N63.20 Unspecified lump in the left breast, unspecified quadrant (principal); N60.12 Diffuse cystic mastopathy of left breast
CPT/HCPCS: 76642; 77065; G0279

== ENCOUNTER → 2021-04-25 | Outpatient (CLI) | payer MEDICARE, MEDICAID ==
[2021-04-25 09:15] LABS: HEMATOCRIT 40.1 % (36.0-47.0); HEMOGLOBIN 12.6 g/dl (12.0-15.5); MEAN CORPUSCULAR HEMOGLOBIN 30.5 pg (27.0-33.0); MEAN CORPUSCULAR HGB CONC 31.4 g/dl (32.0-36.5); MEAN CORPUSCULAR VOLUME 97.1 fl (80.0-96.0); PLATELET COUNT, AUTOMATED 229 10^3/uL (150-450); RED BLOOD COUNT 4.13 10^6/uL (4.00-5.40); WHITE BLOOD COUNT 4.3 10^3/uL (4.0-10.0)
--- NOTE | 2021-04-25 09:33 | REP ---
INDICATION: OTHER DISEASES OF PHARYNX COMPARISON: None. TECHNIQUE: Frontal view of the chest with multiple views of the right hemithorax. Five total views. FINDINGS: Frontal view of the chest demonstrates no acute cardiopulmonary process, contusion, effusion, or pneumothorax. Multiple views of the right hemithorax demonstrates no acute rib fracture/injury or pathology. IMPRESSION: Normal right rib series. <Electronically signed by Man Urbina > 04/25/21 0929
[2021-04-25 09:47] LABS: ALBUMIN 3.7 GM/DL (3.2-5.2); ALT/SGPT 21 U/L (12-78); BILIRUBIN,TOTAL 0.5 MG/DL (0.2-1.0); BLOOD UREA NITROGEN 15 MG/DL (7-18); CALCIUM LEVEL 9.3 MG/DL (8.8-10.2); CARBON DIOXIDE LEVEL 28 MEQ/L (21-32); CHLORIDE LEVEL 109 MEQ/L (98-107); CHOLESTEROL LEVEL 130 MG/DL (<200); CHOLESTEROL RISK RATIO 2.765 (<5); CREATININE FOR GFR 0.84 MG/DL (0.55-1.30); GLOMERULAR FILTRATION RATE > 60.0 (>45); GLUCOSE, FASTING 95 MG/DL (70-100); HDL CHOLESTEROL 47 MG/DL (>40); LDL CHOLESTEROL 56 MG/DL (<100); NON-HDL-C 83 MG/DL; SODIUM LEVEL 142 MEQ/L (136-145); TRIGLYCERIDES LEVEL 134 MG/DL (<150)
[2021-04-25 10:03] LABS: TOTAL 25(OH) VITAMIN D 33.2 NG/ML (30.0-100.0)
== END ==
LOC: M LAB 08:33
PROVIDERS: ATTEND Family Medicine
DX: J39.2 Other diseases of pharynx (principal); I10 Essential (primary) hypertension; E78.5 Hyperlipidemia, unspecified; E55.9 Vitamin D deficiency, unspecified; M79.601 Pain in right arm

== ENCOUNTER → 2021-08-31 | Outpatient (CLI) | payer MEDICARE, MEDICAID ==
--- NOTE | 2021-08-31 10:45 | REPMRS ---
Patient History The patient states she had a clinical breast exam in 04/18. No known family history of cancer. Benign excisional biopsy of the left breast, 1979. No Hormone Replacement Therapy Tomosynthesis is performed. Volpara breast density is a. [facility] lifetime risk of breast cancer 4.4%. Patient states no breast complaints today. Patient has signed MRS History Sheet. Diagnostic Bilateral Mammo: August 31, 2021 - Exam #: [id number] Bilateral CC and MLO view(s) were taken. Technologist: Vanessa Shahid, Delivery Engineer Prior study comparison: April 12, 2021, left breast diagnostic unilateral mammo performed at [facility]. August 30, 2020, bilateral digital woman screen mammo performed at [facility]. FINDINGS: There are scattered fibroglandular densities. There has been no change in the appearance of the mammogram from the prior studies. There is a mild amount of residual fibroglandular tissue which is fairly symmetric. There is no interval development of dominant mass, architectural distortion, or clustered microcalcification suggestive of malignancy. Assessment: BI-RADS/ACR category 1 mammogram. Negative Mammogram. Recommendation Routine screening mammogram in 1 year (for women over age 40). This mammogram was interpreted with the aid of an FDA-approved computer-aided dectection system. Electronically Signed By: Julio Rose MD 08/31/21 1242
--- NOTE | 2021-08-31 12:35 | REP ---
INDICATION: LEFT BREAST MASS. COMPARISON: 04/12/2021. TECHNIQUE: Real-time sonographic evaluation of left breast performed. FINDINGS: The previously noted mixed echogenicity nodule in the left breast at 12 o'clock is no longer visualized, consistent with resolution of a hematoma. IMPRESSION: BIRADS/ACR category 1, negative ultrasound left breast. No persistent nodule at 12 o'clock. RECOMMENDATION: Recommend follow-up mammogram in 1 year. <Electronically signed by Julio Rose > 08/31/21 1236
== END ==
LOC: M WHC 09:30
PROVIDERS: ATTEND Surgery
DX: Z08 Encounter for follow-up examination after completed treatment for malignant neoplasm (principal); N60.32 Fibrosclerosis of left breast
CPT/HCPCS: 76642; 77066; G0279

== ENCOUNTER → 2021-11-25 | Outpatient (REF) ==
[~2021-11-25] MED LIST changes: -OMEP-221 PO; +OMEP40CA5 PO
== END ==
LOC: M LABSMTC 13:26
PROVIDERS: ATTEND Pediatrics
DX: Z20.822 Contact with and (suspected) exposure to COVID-19 (principal)

== ENCOUNTER → 2022-02-01 | Outpatient (CLI) | payer MEDICARE, MEDICAID | LOC: M PLAIMG 09:35 | PROVIDERS: ATTEND Student in an Organized Health Care Education/Training Program | DX: M54.2 Cervicalgia (principal) ==

== ENCOUNTER → 2022-04-03 | Outpatient (CLI) | payer MEDICARE, MEDICAID ==
[2022-04-03 09:40] LABS: HEMATOCRIT 42.2 % (36.0-47.0); HEMOGLOBIN 13.3 g/dl (12.0-15.5); MEAN CORPUSCULAR HEMOGLOBIN 30.3 pg (27.0-33.0); MEAN CORPUSCULAR HGB CONC 31.5 g/dl (32.0-36.5); MEAN CORPUSCULAR VOLUME 96.1 fl (80.0-96.0); PLATELET COUNT, AUTOMATED 223 10^3/uL (150-450); RED BLOOD COUNT 4.39 10^6/uL (4.00-5.40); WHITE BLOOD COUNT 4.2 10^3/uL (4.0-10.0)
[2022-04-03 10:09] LABS: ALBUMIN 3.6 GM/DL (3.2-5.2); BILIRUBIN,TOTAL 0.5 MG/DL (0.2-1.0); CHOLESTEROL RISK RATIO 2.175 (<5); CREATININE FOR GFR 1.02 MG/DL (0.55-1.30); GLOMERULAR FILTRATION RATE 57.4 (>45); TOTAL PROTEIN 7.8 GM/DL (6.4-8.2)
[2022-04-03 11:37] LABS: TOTAL 25(OH) VITAMIN D 32.6 NG/ML (30.0-100.0)
== END ==
LOC: M LAB 08:51
PROVIDERS: ATTEND Family Medicine
DX: M81.0 Age-related osteoporosis without current pathological fracture (principal); E55.9 Vitamin D deficiency, unspecified; E78.5 Hyperlipidemia, unspecified; K21.9 Gastro-esophageal reflux disease without esophagitis

== ENCOUNTER → 2022-04-20 | Outpatient (CLI) | payer MEDICARE, MEDICAID ==
[2022-04-20 17:04] LABS: BASO # 0.1 10^3/uL (0.0-0.2); EOS # 0.1 10^3/uL (0.0-0.5); EOS % 1.4 % (0.0-3.0); HEMATOCRIT 40.7 % (36.0-47.0); HEMOGLOBIN 12.8 g/dl (12.0-15.5); LYMPH # 1.7 10^3/uL (1.5-5.0); LYMPH % 32.8 % (24.0-44.0); MEAN CORPUSCULAR HEMOGLOBIN 30.4 pg (27.0-33.0); MEAN CORPUSCULAR HGB CONC 31.4 g/dl (32.0-36.5); MEAN CORPUSCULAR VOLUME 96.7 fl (80.0-96.0); MONO # 0.5 10^3/uL (0.0-0.8); MONO % 8.7 % (2.0-8.0); NEUTROPHILS # 2.9 10^3/uL (1.5-8.5); NEUTROPHILS % 55.9 % (36.0-66.0); PLATELET COUNT, AUTOMATED 239 10^3/uL (150-450); RED BLOOD COUNT 4.21 10^6/uL (4.00-5.40); WHITE BLOOD COUNT 5.2 10^3/uL (4.0-10.0)
[2022-04-21 10:06] LABS: FOLATE 18.2 NG/ML
== END ==
LOC: M PLALAB 14:59
PROVIDERS: ATTEND Family Medicine
DX: J30.9 Allergic rhinitis, unspecified (principal); D75.89 Other specified diseases of blood and blood-forming organs

== ENCOUNTER → 2023-01-04 | Outpatient (CLI) | payer MEDICARE, MEDICAID | LOC: M WHC 09:20 | PROVIDERS: ATTEND Family Medicine | DX: Z12.31 Encounter for screening mammogram for malignant neoplasm of breast (principal); Z13.820 Encounter for screening for osteoporosis; M85.88 Other specified disorders of bone density and structure, other site; M85.851 Other specified disorders of bone density and structure, right thigh; M85.852 Other specified disorders of bone density and structure, left thigh ==

== ENCOUNTER → 2023-01-04 | Outpatient (CLI) | payer MEDICARE, MEDICAID | LOC: M WHC 09:19 | PROVIDERS: ATTEND Nurse Practitioner Women's Health | DX: Z13.820 Encounter for screening for osteoporosis (principal); M85.88 Other specified disorders of bone density and structure, other site; M85.851 Other specified disorders of bone density and structure, right thigh; M85.852 Other specified disorders of bone density and structure, left thigh ==

== ENCOUNTER 2023-05-04 19:42 | Emergency (ER) | payer MEDICARE, MEDICAID ==
[~2023-05-04] VITALS: Ht 149.9 cm; Wt 72.7 kg
[~2023-05-04 19:42] MED LIST changes: +FLUT50SP17; -FLUTISP
[2023-05-04] MEDS ORDERED: OLME20TA2 PO (20:02)
[2023-05-04 21:08] LABS: BASO # 0.1 10^3/uL (0.0-0.2); BASO % 0.9 % (0.0-1.0); EOS % 0.2 % (0.0-3.0); HEMATOCRIT 43.8 % (36.0-47.0); HEMOGLOBIN 14.2 g/dl (12.0-15.5); LYMPH # 1.4 10^3/uL (1.5-5.0); LYMPH % 24.8 % (24.0-44.0); MEAN CORPUSCULAR HEMOGLOBIN 30.5 pg (27.0-33.0); MEAN CORPUSCULAR HGB CONC 32.4 g/dl (32.0-36.5); MONO # 0.3 10^3/uL (0.0-0.8); MONO % 5.4 % (2.0-8.0); NEUTROPHILS # 3.9 10^3/uL (1.5-8.5); NEUTROPHILS % 68.5 % (36.0-66.0); PLATELET COUNT, AUTOMATED 248 10^3/uL (150-450); RED BLOOD COUNT 4.66 10^6/uL (4.00-5.40); WHITE BLOOD COUNT 5.7 10^3/uL (4.0-10.0)
[2023-05-04 21:29] LABS: LIPASE 27 U/L (12-53)
[2023-05-04 21:31] LABS: ALBUMIN 4.1 G/DL (3.2-5.2); ALKALINE PHOSPHATASE 87 U/L (46-116); ALT/SGPT < 9 U/L (7.0-40); AST/SGOT < 8 U/L (<34); BILIRUBIN,DIRECT 0.1 MG/DL (<0.4); BILIRUBIN,TOTAL 0.4 MG/DL (0.3-1.2); BLOOD UREA NITROGEN 14 MG/DL (9-23); CALCIUM LEVEL 9.4 MG/DL (8.3-10.6); CARBON DIOXIDE LEVEL 24 MMOL/L (20-31); CHLORIDE LEVEL 106 MMOL/L (98-107); CREATININE FOR GFR 0.71 MG/DL (0.55-1.30); GLOMERULAR FILTRATION RATE > 60.0 (>45); GLUCOSE, FASTING 79 MG/DL (74-106); POTASSIUM SERUM 4.1 MMOL/L (3.5-5.1); SODIUM LEVEL 141 MMOL/L (136-145); TOTAL PROTEIN 7.3 G/DL (5.7-8.2)
[2023-05-05 02:43] VITALS: TEMP 97.4
[2023-05-05] MEDS ORDERED: METOCLOPRAMIDE INJ 10MG/2ML VIAL IV ONE (03:20)
[2023-05-05] MEDS ORDERED: NS 1,000 ML IV ONE (03:20)
[2023-05-05 03:34] LABS: ERYTHROCYTE SEDIMENTATION RATE 31 mm/hr (0-30)
[2023-05-05] MEDS ORDERED: KETOROLAC 30 MG/ML 1ML VIAL IV ONE (03:40)
[2023-05-05] MEDS ORDERED: methylPREDNISolone 125MG 2ML VIAL IV ONE (03:50)
[2023-05-05 05:00] VITALS: BP 172/80
[2023-05-05 05:27] VITALS: O2SAT 98
[2023-05-05] MEDS ORDERED: ONDA4TAB6 PO (05:30)
[2023-05-05] MEDS ORDERED: SIMETHICONE 80MG CHEW TAB PO STA (05:31)
== END 2023-05-05 05:49 | disposition home or self-care (01) ==
LOC: M ED 19:42
DX: G43.909 Migraine, unspecified, not intractable, without status migrainosus (principal); A08.4 Viral intestinal infection, unspecified; I10 Essential (primary) hypertension; E78.5 Hyperlipidemia, unspecified; K21.9 Gastro-esophageal reflux disease without esophagitis; Z79.899 Other long term (current) drug therapy
CPT/HCPCS: 70450; 74176; 80048; 80076; 83690; 85025; 85652; 87486; 87581; 87633; 87798; 96361; 96374; 96375; 99284; J1885; J2765; J2930

== ENCOUNTER → 2023-05-09 | Outpatient (CLI) | payer MEDICARE, MEDICAID ==
[~2023-05-09] MED LIST changes: +OLME20TA2 PO
[2023-05-09 09:38] LABS: HEMATOCRIT 39.5 % (36.0-47.0); HEMOGLOBIN 12.5 g/dl (12.0-15.5); MEAN CORPUSCULAR HEMOGLOBIN 30.3 pg (27.0-33.0); MEAN CORPUSCULAR HGB CONC 31.6 g/dl (32.0-36.5); MEAN CORPUSCULAR VOLUME 95.9 fl (80.0-96.0); PLATELET COUNT, AUTOMATED 226 10^3/uL (150-450); RED BLOOD COUNT 4.12 10^6/uL (4.00-5.40); WHITE BLOOD COUNT 4.7 10^3/uL (4.0-10.0)
[2023-05-09 10:00] LABS: MALB URINE SIEMENS < 3.0 MG/L; MAU/CREAT RATIO 5.7 MCG/MG (0.0-30.0)
[2023-05-09 10:00] LABS: ALBUMIN 3.6 G/DL (3.2-5.2); ALKALINE PHOSPHATASE 80 U/L (46-116); ALT/SGPT 19 U/L (7.0-40); AST/SGOT 20 U/L (<34); BILIRUBIN,TOTAL 0.5 MG/DL (0.3-1.2); BLOOD UREA NITROGEN 12 MG/DL (9-23); CALCIUM LEVEL 9.9 MG/DL (8.3-10.6); CARBON DIOXIDE LEVEL 31 MMOL/L (20-31); CHLORIDE LEVEL 104 MMOL/L (98-107); CHOLESTEROL LEVEL 135 MG/DL (<200); CREATININE FOR GFR 0.76 MG/DL (0.55-1.30); GLOMERULAR FILTRATION RATE > 60.0 (>45); GLUCOSE, FASTING 84 MG/DL (74-106); HDL CHOLESTEROL 36.4 MG/DL (>40); NON-HDL-C 98.6 MG/DL; POTASSIUM SERUM 3.8 MMOL/L (3.5-5.1); SODIUM LEVEL 142 MMOL/L (136-145); TOTAL PROTEIN 6.5 G/DL (5.7-8.2); TRIGLYCERIDES LEVEL 253 MG/DL (<150)
[2023-05-09 10:02] LABS: THYROID STIMULATING HORMONE 3.181 uIU/ML (0.55-4.78); TOTAL 25(OH) VITAMIN D 34.2 NG/ML (20.0-100.0)
== END ==
LOC: M LAB 07:55
PROVIDERS: ATTEND Family Medicine
DX: I10 Essential (primary) hypertension (principal); D75.89 Other specified diseases of blood and blood-forming organs; E78.5 Hyperlipidemia, unspecified; E55.9 Vitamin D deficiency, unspecified; Z12.39 Encounter for other screening for malignant neoplasm of breast

== ENCOUNTER → 2023-07-20 | Outpatient (CLI) | payer MEDICARE, MEDICAID ==
[2023-07-20 10:23] LABS: BLOOD UREA NITROGEN 15 MG/DL (9-23); CALCIUM LEVEL 9.6 MG/DL (8.3-10.6); CARBON DIOXIDE LEVEL 30 MMOL/L (20-31); CHLORIDE LEVEL 108 MMOL/L (98-107); CREATININE FOR GFR 0.81 MG/DL (0.55-1.30); GLOMERULAR FILTRATION RATE > 60.0 (>39); GLUCOSE, FASTING 100 MG/DL (74-106); POTASSIUM SERUM 4.2 MMOL/L (3.5-5.1); SODIUM LEVEL 145 MMOL/L (136-145)
== END ==
LOC: M PLALAB 08:10
PROVIDERS: ATTEND Student in an Organized Health Care Education/Training Program
DX: N28.1 Cyst of kidney, acquired (principal)

== ENCOUNTER → 2023-09-19 | Outpatient (CLI) | payer MEDICARE, MEDICAID | LOC: M RAD 08:44 | PROVIDERS: ATTEND Student in an Organized Health Care Education/Training Program | DX: N28.1 Cyst of kidney, acquired (principal) ==

== ENCOUNTER → 2024-01-10 | Outpatient (CLI) | payer MEDICARE, MEDICAID ==
[~2024-01-10] MED LIST changes: -FLUT50SP17; +FLUTISP; -OLME20TA2 PO; +OLME20TA50 PO
== END ==
LOC: M WHC 14:10
PROVIDERS: ATTEND Family Medicine
DX: Z12.31 Encounter for screening mammogram for malignant neoplasm of breast (principal)

== ENCOUNTER → 2024-04-29 | Outpatient (REF) | payer MEDICARE, MEDICAID ==
[~2024-04-29] MED LIST changes: +ONDA-282 PO; -ONDA4TAB6 PO
== END ==
LOC: M SFHCDERM 12:30
PROVIDERS: ATTEND Nurse Practitioner Family
DX: R21 Rash and other nonspecific skin eruption (principal)

== ENCOUNTER → 2024-05-15 | Outpatient (CLI) | payer MEDICARE, MEDICAID ==
[2024-05-15 09:13] LABS: HEMATOCRIT 41.2 % (36.0-47.0); HEMOGLOBIN 13.1 g/dl (12.0-15.5); MEAN CORPUSCULAR HEMOGLOBIN 30.6 pg (27.0-33.0); MEAN CORPUSCULAR HGB CONC 31.8 g/dl (32.0-36.5); MEAN CORPUSCULAR VOLUME 96.3 fl (80.0-96.0); PLATELET COUNT, AUTOMATED 221 10^3/uL (150-450); RED BLOOD COUNT 4.28 10^6/uL (4.00-5.40); WHITE BLOOD COUNT 4.7 10^3/uL (4.0-10.0)
[2024-05-15 09:55] LABS: ALBUMIN 3.4 G/DL (3.2-5.2); ALKALINE PHOSPHATASE 97 U/L (46-116); ALT/SGPT 15 U/L (7.0-40); AST/SGOT 15 U/L (<34); BILIRUBIN,TOTAL 0.5 MG/DL (0.3-1.2); BLOOD UREA NITROGEN 21 MG/DL (9-23); CALCIUM LEVEL 9.6 MG/DL (8.3-10.6); CARBON DIOXIDE LEVEL 28 MMOL/L (20-31); CHLORIDE LEVEL 111 MMOL/L (98-107); CHOLESTEROL LEVEL 115 MG/DL (<200); CHOLESTEROL RISK RATIO 3.16 (<5); CREATININE FOR GFR 0.86 MG/DL (0.55-1.30); GLOMERULAR FILTRATION RATE > 60.0 (>39); GLUCOSE, FASTING 96 MG/DL (74-106); HDL CHOLESTEROL 36.3 MG/DL (>40); LDL CHOLESTEROL 52.1 MG/DL (<100); NON-HDL-C 78.7 MG/DL; POTASSIUM SERUM 4.4 MMOL/L (3.5-5.1); SODIUM LEVEL 142 MMOL/L (136-145); TOTAL PROTEIN 6.5 G/DL (5.7-8.2); TRIGLYCERIDES LEVEL 133 MG/DL (<150)
[2024-05-15 09:56] LABS: TOTAL 25(OH) VITAMIN D 40.6 NG/ML (20.0-100.0)
== END ==
LOC: M LAB 08:11
PROVIDERS: ATTEND Family Medicine
DX: I10 Essential (primary) hypertension (principal); E78.5 Hyperlipidemia, unspecified; M81.0 Age-related osteoporosis without current pathological fracture; E55.9 Vitamin D deficiency, unspecified; K21.9 Gastro-esophageal reflux disease without esophagitis

== ENCOUNTER → 2024-11-17 | Outpatient (REF) | payer MEDICARE, MEDICAID ==
[~2024-11-17] MED LIST changes: +ACET-1599 PO; -EXCETAB44 PO
== END ==
LOC: M SFHCPLAZ 10:27
PROVIDERS: ATTEND Family Medicine
DX: Z53.9 Procedure and treatment not carried out, unspecified reason (principal)

== ENCOUNTER → 2025-01-12 | Outpatient (CLI) | payer MEDICARE, MEDICAID | LOC: M WHC 08:32 | PROVIDERS: ATTEND Family Medicine | DX: Z12.31 Encounter for screening mammogram for malignant neoplasm of breast (principal); R92.313 Mammographic fatty tissue density, bilateral breasts ==

== ENCOUNTER → 2025-05-06 | Outpatient (CLI) | payer MEDICARE, MEDICAID ==
[~2025-05-06] MED LIST changes: +AMOX875T; +LORA-1164 PO; -LORA-622 PO; +REGL5TAB2 PO
[2025-05-06 08:46] LABS: PLATELET COUNT, AUTOMATED 213 10^3/uL (150-450)
[2025-05-06 09:11] LABS: ALT/SGPT 16.0 U/L (7.0-40); AST/SGOT 25.0 U/L (<34); CALCIUM LEVEL 9.5 MG/DL (8.3-10.6); CARBON DIOXIDE LEVEL 28.0 MMOL/L (20-31); CHLORIDE LEVEL 110.0 MMOL/L (98-107); CHOLESTEROL LEVEL 119.0 MG/DL (<200); CHOLESTEROL RISK RATIO 2.86 (<5); CREATININE FOR GFR 0.77 MG/DL (0.55-1.30); GLOMERULAR FILTRATION RATE 82.4 (>39); LDL CHOLESTEROL 52.5 MG/DL (<100); NON-HDL-C 77.5 MG/DL; POTASSIUM SERUM 3.8 MMOL/L (3.5-5.1); SODIUM LEVEL 148.0 MMOL/L (136-145); TRIGLYCERIDES LEVEL 125.0 MG/DL (<150)
[2025-05-06 09:14] LABS: TOTAL 25(OH) VITAMIN D 49.7 NG/ML (20.0-100.0)
== END ==
LOC: M LAB 07:36
PROVIDERS: ATTEND Family Medicine
DX: J30.9 Allergic rhinitis, unspecified (principal); E78.00 Pure hypercholesterolemia, unspecified

== ENCOUNTER 2025-05-09 09:25 | Emergency (ER) | payer MEDICARE, MEDICAID ==
[~2025-05-09] VITALS: Ht 149.9 cm; Wt 72.7 kg
[~2025-05-09 09:25] MED LIST changes: -AMOX875T; -REGL5TAB2 PO
[2025-05-09] MEDS ORDERED: FLUTISP (09:38)
[2025-05-09] MEDS ORDERED: AMOX875T (09:38)
[2025-05-09] MEDS ORDERED: ISOVUE-370 76% 100 ML VIAL As Ordered ONE (10:33)
[2025-05-09 10:37] LABS: BASO # 0.1 10^3/uL (0.0-0.2); BASO % 0.9 % (0.0-1.0); EOS # 0.1 10^3/uL (0.0-0.5); EOS % 1.4 % (0.0-3.0); LYMPH # 1.2 10^3/uL (1.5-5.0); LYMPH % 21.4 % (24.0-44.0); MONO # 0.3 10^3/uL (0.0-0.8); MONO % 4.7 % (2.0-8.0); NEUTROPHILS # 4.1 10^3/uL (1.5-8.5); NEUTROPHILS % 71.3 % (36.0-66.0); PLATELET COUNT, AUTOMATED 240 10^3/uL (150-450)
[2025-05-09] MEDS: NS (Normal Saline) 0.9% 1,000 ML IV ONE (10:57)
[2025-05-09] MEDS: ACETAMINOPHEN *IV* 1,000 MG in IV 1 EA IV ONE (10:58)
[2025-05-09 11:00] LABS: ALT/SGPT 15.0 U/L (7.0-40); AST/SGOT 26.0 U/L (<34); CALCIUM LEVEL 9.7 MG/DL (8.3-10.6); CARBON DIOXIDE LEVEL 26.0 MMOL/L (20-31); CHLORIDE LEVEL 105.0 MMOL/L (98-107); CREATININE FOR GFR 0.85 MG/DL (0.55-1.30); GLOMERULAR FILTRATION RATE 73.2 (>39); POTASSIUM SERUM 3.8 MMOL/L (3.5-5.1); SODIUM LEVEL 145.0 MMOL/L (136-145)
[2025-05-09] MEDS: PROPARACAINE 0.5% OPHTH SOL 15ML OU ONE (11:30)
[2025-05-09] MEDS ORDERED: REGL5TAB2 PO (17:14)
[2025-05-09 17:20] VITALS: BP 125/69; TEMP 96.9; O2SAT 99
== END 2025-05-09 17:23 | disposition home or self-care (01) ==
LOC: M ED 09:25
DX: G43.909 Migraine, unspecified, not intractable, without status migrainosus (principal); R00.1 Bradycardia, unspecified; I10 Essential (primary) hypertension; K21.9 Gastro-esophageal reflux disease without esophagitis; E78.5 Hyperlipidemia, unspecified; Z79.1 Long term (current) use of non-steroidal anti-inflammatories (NSAID); Z79.2 Long term (current) use of antibiotics; Z79.02 Long term (current) use of antithrombotics/antiplatelets; Z79.83 Long term (current) use of bisphosphonates; Z79.899 Other long term (current) drug therapy
CPT/HCPCS: 70450; 70496; 70498; 70544; 70551; 71045; 80047; 80048; 80076; 82150; 83605; 83690; 85025; 85652; 87040; 87486; 87581; 87633; 87798; 93005; 93041; 94760; 96365; 96366; 96375; 99285; J0131; J2765; Q9967